=== PATIENT | female | born 1980 | race Caucasian/White ===

== ENCOUNTER 2019-07-09 16:49 | Inpatient (IN) ==
[2019-07-09 17:51] LABS: BASO# 0.01 X1000 (0.0-0.2); BASO% 0.1 % (0.0-0.8); EOS# 0.11 X1000 (0.0-0.7); EOS% 0.7 % (0.0-10.0); HEMATOCRIT 34.3 % (37.0-47.0); HEMOGLOBIN 11.1 g/dL (12.0-16.0); IMM GRAN# 0.04 X1000 (0.0-0.04); IMM GRAN% 0.3 % (0.0-0.5); LYMPH# 0.68 X1000 (1.2-3.4); LYMPH% 4.4 % (20.5-51.1); MCH 28.1 PG (27-31); MCHC 32.4 g/dL (33-37); MCV 86.8 FL (81-99); MONO% 4.5 % (1.7-9.3); MPV 9.9 FL (7.4-10.4); NEUT# 14.01 X1000 (1.4-6.5); PLT 251 X1000 (130-400); RBC 3.95 XMIL (4.2-5.4); WBC 15.55 X1000 (4.8-10.8)
[2019-07-09 18:02] LABS: AGAP 12; ALB/GLOB RATIO 1.3; ALBUMIN 3.4 g/dL (3.5-5.0); ALKALINE PHOSPHATASE 80 U/L (32-104); BUN 8 mg/dL (8-22); CALCIUM 8.6 mg/dL (8.8-10.2); CHLORIDE 97 mmol/L (98-107); COSMO 264; CREATININE 0.6 mg/dL (0.5-0.9); ESTIMATED GFR > 60; GLUCOSE 127 mg/dL (70-104); GOT 141 U/L (10-30); GPT 153 U/L (10-36); POTASSIUM 3.2 mmol/L (3.5-5.1); SODIUM 132 mmol/L (136-145); TCO2 23 mmol/L (25-35); TOTAL BILIRUBIN 0.21 mg/dL (0.20-1.00); TOTAL PROTEIN 6.1 g/dL (6.3-8.3)
[2019-07-09 19:21] LABS: INR 0.97; PROTIME 12.9 Seconds (11.0-16.0)
[2019-07-09 19:22] LABS: PTT 33.5 Seconds (22.3-41.8)
[2019-07-09 19:57] LABS: CK INDEX 0.2 (0.0-2.5); CK-MB 8.15 ng/mL (0.0-5.0)
[2019-07-09] MEDS ORDERED: VANCOMYCIN 1 GM/NS 1 GM/250 ML IVPB IV SCH (21:15)
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
[2019-07-09 22:36] LABS: URINE SOURCE CLEAN CATCH
[2019-07-09 23:04] LABS: BILIRUBIN URINE NEGATIVE (NEGATIVE); BLOOD URINE TRACE (NEGATIVE); COLOR YELLOW; GLUCOSE URINE NEGATIVE (NEGATIVE); KETONE URINE NEGATIVE (NEGATIVE); LEUKOCYTES URINE NEGATIVE (NEGATIVE); NITRITE URINE NEGATIVE (NEGATIVE); PH URINE 6.5; PROTEIN URINE 30 mg/dL (NEGATIVE); SP GRAVITY URINE 1.013; TURBIDITY URINE CLEAR (CLEAR); UROBILINOGEN URINE NORMAL (NORMAL)
[2019-07-09 23:23] LABS: UR EPITHELIAL CELLS <10 /HPF (<10); URINE BACTERIA NEGATIVE /HPF; URINE RBC <10 /HPF (<10); URINE WBC <10 /HPF (<10)
[2019-07-09 23:27] LABS: URINE CASTS NONE SEEN; URINE CRYSTALS NONE SEEN; URINE YEAST NONE SEEN
[2019-07-10 00:11] LABS: UR AMPHETAMINES QUAL PRESUMPTIVE POSITIVE (NONE DETECT); UR BARBITUATES QUAL NONE DETECTED (NONE DETECT); UR BENZODIAZEPIN QUAL NONE DETECTED (NONE DETECT); UR CANNABINOIDS QUAL NONE DETECTED (NONE DETECT); UR COCAINE QUAL NONE DETECTED (NONE DETECT); UR METHADONE QUAL NONE DETECTED (NONE DETECT); UR OPIATES QUAL NONE DETECTED (NONE DETECT); UR OXYCODONE QUAL NONE DETECTED (NONE DETECT); UR PCP QUAL NONE DETECTED (NONE DETECT)
[2019-07-10] MEDS ORDERED: ZOSYN 4.5 GM in NS 100 ML IV SCH (00:30)
[2019-07-10] MEDS ORDERED: VANCOMYCIN IV PER PHARMACY MISC SCH ×2 (00:30→04:08)
[2019-07-10] MEDS ORDERED: KLOR-CON PO ONE ×2 (00:33→02:26)
[2019-07-10] MEDS ORDERED: VANCOMYCIN 800 MG in NS 250 ML IV ONE (02:15)
--- NOTE | 2019-07-10 02:27 | HISTORY AND PHYSICAL ---
PRIMARY CARE PHYSICIAN: None. CHIEF COMPLAINT: Sore on buttocks x2 days. HISTORY OF PRESENTING ILLNESS: A 38-year-old female with a history of fibromyalgia who had presented to emergency department with complaint of sore on her buttocks region for the past 2 days. The patient states that it has been very painful and she was having some intermittent fevers. She was evaluated in the emergency department and it seemed that the region around her buttocks seemed inflamed and indurated. Due to her presenting symptoms, she will require admission for further management. At the time of my examination, she denied any nausea, vomiting, diarrhea, chest pain, hemoptysis or any weight changes, but complained of buttocks pain, fever, and coughing. PAST MEDICAL HISTORY: Includes fibromyalgia. PAST SURGICAL HISTORY: None. ALLERGIES: No known drug allergies. CURRENT MEDICATIONS: None. SOCIAL HISTORY: Fifteen pack year history of smoking. Admits to social alcohol use. Denies any illicit drug use. FAMILY HISTORY: Positive for coronary disease in mother. REVIEW OF SYSTEMS: Fourteen-point review of systems as listed in HPI. Other systems negative. PHYSICAL EXAMINATION: GENERAL: Cooperative, friendly female. She is resting more comfortably now. VITAL SIGNS: Temperature 98.6 degrees, pulse 117, respiration 19, blood pressure 100/63. HEENT: Atraumatic, normocephalic. Extraocular movements intact. PERRLA. NECK: Supple. CHEST: Clear to auscultation. CARDIOVASCULAR: Regular rate and rhythm. ABDOMEN: Soft. Positive bowel sounds. GENITOURINARY: Indurated region in her buttocks. NEUROLOGIC: Nonfocal. SKIN: Warm. LABORATORIES AND STUDIES: WBCs 15.55, hemoglobin 11.1, hematocrit 34.3, platelets 251,000. Sodium 132, potassium 3.2, chloride 97, CO2 is 23, BUN is 8, creatinine 0.6, glucose is 127, creatine kinase is 3453. ASSESSMENT: This is a 38-year-old female with a history of fibromyalgia who presented to emergency department with 2 days history of having a sore in her buttocks region. She was evaluated in the emergency department and it seemed that possibly there was an abscess. Subsequently, she will require admission for further management. 1. Buttocks cellulitis/abscess. 2. Suspected rhabdomyolysis. 3. Acute bronchitis. 4. Ongoing tobacco abuse. PLAN: 1. We will admit patient to medical floor. 2. We will start patient on IV antibiotics and give adequate pain control. 3. Continue with IV fluids and monitor CK levels. 4. Continue with DuoNebs. 5. I counseled patient on smoking cessation. 6. We will put patient on DVT prophylaxis with SCDs. 7. We will continue to follow and reassess, make further recommendation based on patient's clinical course. cc: Agus Hollingsworth MD
[2019-07-10] MEDS ORDERED: ZOSYN ONE (02:35)
[2019-07-10] MEDS ORDERED: ZOFRAN IV PRN (04:08)
[2019-07-10] MEDS ORDERED: TYLENOL PO PRN (04:08)
[2019-07-10 04:53] LABS: CK INDEX 0.3 (0.0-2.5); CK-MB 5.34 ng/mL (0.0-5.0)
[2019-07-10] MEDS: ROCEPHIN 1 GM in NS 50 ML IV SCH (05:07)
[2019-07-10] MEDS: NS 1,000 ML IV SCH ×2 (05:07→16:03)
[2019-07-10 07:34] LABS: BASO# 0.01 X1000 (0.0-0.2); BASO% 0.1 % (0.0-0.8); EOS# 0.19 X1000 (0.0-0.7); EOS% 1.5 % (0.0-10.0); HEMATOCRIT 30.4 % (37.0-47.0); HEMOGLOBIN 9.7 g/dL (12.0-16.0); IMM GRAN# 0.03 X1000 (0.0-0.04); IMM GRAN% 0.2 % (0.0-0.5); LYMPH# 0.78 X1000 (1.2-3.4); LYMPH% 6.1 % (20.5-51.1); MCH 28.4 PG (27-31); MCHC 31.9 g/dL (33-37); MCV 88.9 FL (81-99); MONO# 0.79 X1000 (0.11-0.59); MONO% 6.2 % (1.7-9.3); MPV 10.1 FL (7.4-10.4); NEUT# 11.01 X1000 (1.4-6.5); NEUT% 85.9 % (42.2-75.2); PLT 228 X1000 (130-400); RBC 3.42 XMIL (4.2-5.4); WBC 12.81 X1000 (4.8-10.8)
--- NOTE | 2019-07-10 07:47 | Diag Imaging Result Doc PS360 ---
EXAM: CHEST-1 VIEW HISTORY: sepsis protocol TECHNIQUE: Two views COMPARISON: None. FINDINGS: The patient is rotated to the left. No cardiomegaly. No pulmonary edema. No infiltrates. No pleural effusions identified. IMPRESSION: No pneumonia Electronically signed by Alexander Sofia 07/10/2019 7:45 AM
[2019-07-10 07:55] LABS: AGAP 11; BUN 5 mg/dL (8-22); CALCIUM 8.1 mg/dL (8.8-10.2); CHLORIDE 104 mmol/L (98-107); COSMO 279; CREATININE 0.6 mg/dL (0.5-0.9); ESTIMATED GFR > 60; GLUCOSE 101 mg/dL (70-104); POTASSIUM 3.6 mmol/L (3.5-5.1); SODIUM 141 mmol/L (136-145); TCO2 26 mmol/L (25-35)
[2019-07-10 08:02] LABS: BANDS 4 % (0-1); EOS 2 % (1-10); LYMPHS 2 % (21-51); MONO 6 % (1-9); SEGS 86 % (42-75)
[2019-07-10] MEDS: DUONEB (A & A) INH SCH ×6 (08:47→23:06)
[2019-07-10] MEDS: MUCINEX PO SCH ×2 (09:02→20:22)
--- NOTE | 2019-07-10 14:44 | GENERAL SURGERY CONSULTATION ---
DATE: 07/10/2019 REQUESTING PHYSICIAN: Dr. Vogel. REASON FOR CONSULTATION: Gluteal abscess. HISTORY OF PRESENT ILLNESS: A 38-year-old female with history of fibromyalgia, who presented to the emergency department complaining of soreness to her gluteal region for the past 2 days. She says it has been very painful and has had some intermittent fever. She was evaluated in the emergency department and shown to have an area of induration in her buttocks. She has been admitted. Of note she also tested positive for amphetamines in her urine drug screen. She still has significant tenderness there, and cannot sit there for very long. I was asked to weigh an opinion. At the time of this dictation, a CT scan is pending. PAST MEDICAL HISTORY: Fibromyalgia. PAST SURGICAL HISTORY: None. ALLERGIES: None. CURRENT MEDICATIONS: MAR reviewed. Of note, she is on vancomycin and Rocephin. FAMILY HISTORY: Reviewed. Positive for coronary artery disease. SOCIAL HISTORY: Current smoker. Reports social alcohol intake. Did have a positive urinary drug screen for amphetamines. REVIEW OF SYSTEMS: A full 14 systems reviewed, negative except as otherwise specified in HPI. PHYSICAL EXAMINATION: Vital Signs: Patient is currently with temperature 99.3 degrees, pulse 67, blood pressure 110/56. General exam: Resting female looks stated age. HEENT: Normocephalic. Some wounds noted to her face. Mucous membranes moist. Oropharynx benign. Neck: Supple. Trachea midline. Cardiovascular: Regular rate and rhythm. Lungs: Grossly clear. Abdomen: Soft, nontender. Gluteal region: There are areas of induration on both gluteal folds and at the gluteal cleft. There is an area of some fibrinous exudate and maybe some purulence noted. It is very exquisitely tender to palpation. It is warm to the touch, but there is no streaking erythema noted. No fluctuance noted at this time. I did get a culture from the area. Vascular: All extremities perfused. Neurologic: Grossly intact. Skin: Multiple wounds on her hand and face, and the gluteal wound as noted above. Neurologic: Grossly intact. LABORATORY: White blood cell count is 12 which is down from admission. There is a left shift. Remainder of labs reviewed. Of note, her creatine kinase is elevated, but trending down. IMAGING: Currently pending. ASSESSMENT/PLAN: A 38-year-old female with gluteal cellulitis versus abscess. 1. Gluteal abscess versus cellulitis. At this time, we will follow up with a CT scan. She is on appropriate antibiotics. Exam is very difficult at this time. It may represent something like a pilonidal cyst, but I did not see any obvious fluctuance, but there may be an abscess deeper down, and given the limitations of the exam could not feel. So, we will follow up with the CT scan. Recommend continue antibiotics and we will continue to monitor. If there is a discrete abscess, may consider taking her to the operating room tomorrow. cc: Nicolas Diana MD
[2019-07-10] MEDS: VANCOMYCIN 1,350 MG in NS 250 ML IV SCH (16:03)
--- NOTE | 2019-07-10 17:45 | PROGRESS NOTE ---
DATE: 07/10/2019 SUBJECTIVE: Patient has no major complaints, except back pain and kind of generalized pain. OBJECTIVE: BP 102/74, heart rate 98, respiratory 19, temperature 98.9 degrees.Cardiovascular: Regular rate and rhythm. Pulmonary: Bilateral breath sounds. Clear to auscultation. Gastrointestinal: Soft, nontender, nondistended. Bowel sounds are positive. LABORATORY DATA: White count is 12, hemoglobin and hematocrit 9 and 30, platelets 228,000. Basic was normal. CPK down to 1829. PROBLEM LIST: 1. Gluteal cellulitis, possible abscess. We will continue empiric antibiotics and follow. 2. Rhabdomyolysis, which I think is probably related to her methamphetamine use. It is improved. We will continue fluids and follow. 3. Polysubstance abuse including methamphetamines and tobacco. We have counseled on cessation. Continue to monitor. cc: Rambo Vogel MD
--- NOTE | 2019-07-10 19:59 | Diag Imaging Result Doc PS360 ---
EXAM: CT PELVIS W/CONTRAST HISTORY: r/o abscess TECHNIQUE: CT pelvis with intravenous contrast, but without oral contrast. COMPARISON: None. FINDINGS: There is a large amount of stool within the rectum and colon. The urinary bladder is minimally distended. Normal uterus. Small right ovarian cyst. Normal left ovary. Subcutaneous edema posterior to the sacrum and coccyx. Small amount of fluid adjacent to the distal coccyx, but no well-defined abscess. IMPRESSION: Fecal impaction This exam was performed using automated exposure control, adjustment of mA or kV according to patient size, and/or use of iterative reconstruction technique. Electronically signed by Alexander Sofia 07/10/2019 7:57 PM
[2019-07-11] MEDS: NS 1,000 ML IV SCH ×2 (01:13→17:48)
[2019-07-11] MEDS: VANCOMYCIN 1,350 MG in NS 250 ML IV SCH (01:16)
[2019-07-11] MEDS: ROCEPHIN 1 GM in NS 50 ML IV SCH (03:11)
[2019-07-11] MEDS: DUONEB (A & A) INH SCH ×6 (03:20→22:58)
--- NOTE | 2019-07-11 07:05 | GENERAL SURGERY PROGRESS NOTE ---
DATE: 07/11/2019 SUBJECTIVE: The patient is still hurting. She did have a CT scan done yesterday. It did not show a discrete abscess in her gluteal cleft. OBJECTIVE: Vital Signs: The patient is currently afebrile. Her vital signs are stable. General Examination: No acute distress. Resting on a warm compress. HEENT: Normocephalic, atraumatic. Pupils equal, round, reactive to light. Mucous membranes moist. Oropharynx benign. Neck: Supple. Trachea midline. Cardiovascular: Regular rate and rhythm. Lungs: Grossly clear. Abdomen: Soft, nontender. Gluteal region looks improved. Overall, there is still some induration but no erythema. The wound itself has been cleaned up with some of the slough and has at least a healthy granulated base. It is steak tenderizer machine to palpation. Extremities: Moves all extremities. Neurologic: Grossly intact. Skin: Wounds as noted above and on her hand and on her face, which appear stable. Laboratory: Reviewed from yesterday. White blood cell count is trending down. CT scan as noted above. ASSESSMENT AND PLAN: A 38-year-old female with a gluteal wound. Gluteal wound. At this time, no discrete abscess noted. We will keep the warm compresses and Vashe wet-to-dry. She may develop an abscess because she does have some stranding in the area on the CT scan but at this time, nothing to drain so we will continue local wound care. cc: Nicolas Diana MD
[2019-07-11] MEDS: MUCINEX PO SCH ×2 (08:51→20:07)
[2019-07-11] MEDS: MIRALAX PO SCH (16:17)
[2019-07-11] MEDS: LACTULOSE PO SCH ×2 (16:18→20:01)
[2019-07-11] MEDS: VANCOMYCIN 1,600 MG in NS 250 ML IV SCH (16:23)
--- NOTE | 2019-07-11 18:02 | PROGRESS NOTE ---
DATE: 07/11/2019 SUBJECTIVE: The patient now complaining of diffuse kind of vesicular possible pustules, some are erupted on her face, on her lower chin, 1 is over her finger on her right hand, right thumb. She had 1 that is unroofed on her foot I believe her left foot. OBJECTIVE: Vital Signs: Blood pressure 111/57, heart rate 103, respiratory 16, temperature 97.5 degrees, afebrile. Cardiovascular: Regular rate and rhythm. Pulmonary: Bilateral breath sounds clear to auscultation. GI: Soft, nontender, nondistended. Bowel sounds are positive. Extremities: No clubbing or cyanosis. Lymphatic: No peripheral edema. Neurological: Nonfocal. LABORATORY DATA: White count is 12. We then have any data today. CPK is elevated too . 1. Gluteal cellulitis, maybe pilonodal cyst we will continue antibiotics, she is currently on Rocephin which is day 1 and vanc which is day 1. Her cultures are growing out gram-positive cocci from her buttock culture it says rectum so I am suspicious that this is well it is possible it is staph but could be strep, could be Enterococcus. We will continue antibiotics and follow. 2. Vesicular rash - I did a bedside lancing with a small needle after cleaning the area with chlorhexidine, made a small incision and collected what appeared to be whitish opaque purulent material. I am not sure if this is septic embolic lesions or if this is a separate issue but any case, we will continue empiric antibiotics and follow. 3. Rhabdomyolysis- . We will continue IV fluids and repeat her CPK. I think that is probably related to her methamphetamine use but we will continue to monitor. 4. Polysubstance abuse. Will continue smoking cessation, advising on drug use. 5. Fecal impaction. We will initiate a bowel regimen. She reports a large bowel movement this morning on her own without other treatment. cc: Rambo Vogel MD [facility] CENTERJeremias
[2019-07-12] MEDS: DUONEB (A & A) INH SCH ×6 (03:34→23:07)
[2019-07-12] MEDS: VANCOMYCIN 1,600 MG in NS 250 ML IV SCH (04:23)
--- NOTE | 2019-07-12 07:03 | GENERAL SURGERY PROGRESS NOTE ---
DATE: 07/12/2019 SUBJECTIVE: Patient seems to be doing well. Area seems to be improving. OBJECTIVE: Vital signs: Patient is currently afebrile. Her vital signs are stable. General exam: No acute distress HEENT: Normocephalic, atraumatic. Pupils equal, round, reactive to light. Mucous membranes moist. Oropharynx benign. Neck: Neck is supple. Trachea midline Cardiovascular: Regular rate and rhythm. Lungs: Grossly clear Abdomen: Soft, nontender, nondistended. Rectal: Area reviewed with defensive fire control systems operator; the area seems to be improving. Induration appears to be overall less Extremities: Moves all extremities. Neurologic: Grossly intact. Skin: Wounds as previously noted. Vascular: All extremities perfused. LABORATORY: None this morning as of yet; none from yesterday. Microbiology: Shows gram-positive cocci. ASSESSMENT AND PLAN: A 38-year-old female with gluteal abscess. 1. Gluteal abscess. At this time it might be more of a pilonidal cyst, but at this time seems to be improving with warm compresses, abscess and Vashe wet-to-dry. There does not seem to be discrete abscess on CT scan, so we will just continue local wound care. cc: Nicolas Diana MD
[2019-07-12 08:58] LABS: BASO# 0.01 X1000 (0.0-0.2); BASO% 0.2 % (0.0-0.8); EOS# 0.15 X1000 (0.0-0.7); EOS% 2.5 % (0.0-10.0); HEMATOCRIT 28.2 % (37.0-47.0); HEMOGLOBIN 8.7 g/dL (12.0-16.0); IMM GRAN# 0.02 X1000 (0.0-0.04); IMM GRAN% 0.3 % (0.0-0.5); LYMPH% 20.3 % (20.5-51.1); MCH 27.9 PG (27-31); MCHC 30.9 g/dL (33-37); MCV 90.4 FL (81-99); MONO# 0.44 X1000 (0.11-0.59); MONO% 7.4 % (1.7-9.3); MPV 10.1 FL (7.4-10.4); NEUT# 4.09 X1000 (1.4-6.5); NEUT% 69.3 % (42.2-75.2); PLT 237 X1000 (130-400); RBC 3.12 XMIL (4.2-5.4); WBC 5.91 X1000 (4.8-10.8)
[2019-07-12] MEDS ORDERED: BLISTEX MEDICATED BERRY LIP BALM TOP PRN (08:59)
[2019-07-12] MEDS: MUCINEX PO SCH ×2 (09:01→21:25)
[2019-07-12] MEDS: ROCEPHIN 1 GM in NS 50 ML IV SCH (09:01)
[2019-07-12] MEDS: MIRALAX PO SCH (09:02)
[2019-07-12] MEDS: LACTULOSE PO SCH ×2 (09:02→21:26)
[2019-07-12 09:28] LABS: AGAP 12; BUN 4 mg/dL (8-22); CALCIUM 8.1 mg/dL (8.8-10.2); CHLORIDE 105 mmol/L (98-107); COSMO 282; CREATININE 0.5 mg/dL (0.5-0.9); ESTIMATED GFR > 60; GLUCOSE 96 mg/dL (70-104); POTASSIUM 3.6 mmol/L (3.5-5.1); SODIUM 143 mmol/L (136-145); TCO2 26 mmol/L (25-35)
[2019-07-12] MEDS: KEFZOL 2 GM/D5W 2 GM/50 ML IVPB IV SCH ×2 (11:59→18:28)
[2019-07-12] MEDS: NS 1,000 ML IV SCH (14:04)
--- NOTE | 2019-07-12 17:12 | PROGRESS NOTE ---
DATE: 07/12/2019 SUBJECTIVE: Patient has no major complaints. OBJECTIVE: Vital Signs: Blood pressure is 121/59, heart rate of 84, respiratory rate 18, temperature 98.4 degrees. Cardiovascular: Regular rate and rhythm. Pulmonary: Bilateral breath sounds clear to auscultation. Gastrointestinal: Abdomen soft, nontender, nondistended. Bowel sounds are positive. LABORATORY DATA: White count of 5, hemoglobin and hematocrit 8 and 28, platelets of 237,000. Basic was normal. CPK is down to 264, vast improvement. PROBLEM LIST: Intergluteal cellulitis. Really, it could be a pilonidal cyst based on where it has been, but it is an open lesion with surrounding erythema, although the cellulitis is minimal and epidermal layer kind of exposed, although it is not actively draining. Looks a lot better than it did yesterday. She is on Rocephin and vancomycin. There is a rectal culture. I am not sure what that is because there is a rectal and buttock culture from 2 different times. Hopefully it is not is on rectal culture. I do not think this is probably very high yield but the rectal culture is growing out Methicillin-sensitive Staphylococcal aureus, so she is currently on cefazolin for that. We may need to continue vancomycin, but the cultures are kind of polymicrobial. She is growing out 2 different gram-positive cocci and then 1 gram-positive cocci from a different wound culture. The wound culture I cultured from her finger yesterday has disappeared. It is not in the available, I wonder what happened to it. We will continue cefazolin for the time being. We may have to reinstitute vancomycin. We will see how she does. She is asking to stop her IV fluids. She wants a NicoDerm patch and she wants something for her lips but these may be just cold sores. We will see how things go. cc: Rambo Vogel MD
[2019-07-12] MEDS: NICODERM PATCH TD PRN (17:43)
[2019-07-13] MEDS: KEFZOL 2 GM/D5W 2 GM/50 ML IVPB IV SCH ×2 (03:42→12:53)
[2019-07-13] MEDS: DUONEB (A & A) INH SCH ×4 (05:31→15:20)
--- NOTE | 2019-07-13 08:49 | GENERAL SURGERY PROGRESS NOTE ---
DATE: 07/13/2019 SUBJECTIVE: Patient seems to be doing about the same. Nursing staff does report she has been picking at her pilonidal. OBJECTIVE: Vital Signs: Patient is currently afebrile, her vital signs are stable. General: No acute distress. HEENT: Normocephalic, atraumatic. Pupils equal, round, reactive to light. Mucous membranes moist. Oropharynx benign. Neck: Supple. Trachea midline. Cardiovascular: Regular rate and rhythm. Lungs: Grossly clear. Abdomen: Soft, nontender, nondistended. Rectal: Perineal area reviewed with medical record technician area seems to be improving. There might be a little sinus tract consistent with a pilonidal cyst in the area but no active purulence. There is some fibrinous exudate in the area. Extremities: Moves all extremities. Neurologic: Grossly intact. Skin: As noted above and previous wounds noted to her skin. Vascular: All extremities perfused. LABORATORY DATA: None this morning as of yet. Culture data shows gram-positive cocci. ASSESSMENT AND PLAN: A 38-year-old with likely infected pilonidal cyst. Pilonidal cyst. At this time, I recommend continuing with local wound care. She is on antibiotics. I think from a surgical point of view, she can probably be transitioned to p.o. antibiotics and discharged here in the near future, but we will defer to the Hospitalist. cc: Nicolas Diana MD
[2019-07-13 08:50] LABS: BASO# 0.01 X1000 (0.0-0.2); BASO% 0.2 % (0.0-0.8); EOS# 0.19 X1000 (0.0-0.7); EOS% 3.6 % (0.0-10.0); HEMATOCRIT 28.5 % (37.0-47.0); HEMOGLOBIN 8.8 g/dL (12.0-16.0); IMM GRAN# 0.02 X1000 (0.0-0.04); IMM GRAN% 0.4 % (0.0-0.5); LYMPH# 1.53 X1000 (1.2-3.4); LYMPH% 28.8 % (20.5-51.1); MCH 27.8 PG (27-31); MCHC 30.9 g/dL (33-37); MCV 90.2 FL (81-99); MONO# 0.45 X1000 (0.11-0.59); MONO% 8.5 % (1.7-9.3); MPV 9.9 FL (7.4-10.4); NEUT# 3.11 X1000 (1.4-6.5); NEUT% 58.5 % (42.2-75.2); PLT 276 X1000 (130-400); RBC 3.16 XMIL (4.2-5.4); RDW 14.6 % (11.5-14.5); WBC 5.31 X1000 (4.8-10.8)
[2019-07-13 09:17] LABS: AGAP 10; BUN 4 mg/dL (8-22); CALCIUM 8.6 mg/dL (8.8-10.2); CHLORIDE 103 mmol/L (98-107); COSMO 274; CREATININE 0.5 mg/dL (0.5-0.9); ESTIMATED GFR > 60; GLUCOSE 90 mg/dL (70-104); POTASSIUM 3.8 mmol/L (3.5-5.1); SODIUM 139 mmol/L (136-145); TCO2 26 mmol/L (25-35)
[2019-07-13] MEDS: MUCINEX PO SCH (09:47)
[2019-07-13] MEDS: LACTULOSE PO SCH (12:52)
[2019-07-13] MEDS: MIRALAX PO SCH (12:52)
[2019-07-13] MEDS: NICODERM PATCH TD PRN (12:56)
[2019-07-13 19:22] VITALS: BP 136/97
--- NOTE | 2019-07-14 06:37 | DISCHARGE SUMMARY ---
ADMISSION DATE: 07/10/2019 DISCHARGE DATE: 07/13/2019 DISCHARGE DIAGNOSIS: Intragluteal abscess possibly ruptured pilonidal cyst infection with MSSA and strep pyogenes. HISTORY: Briefly, this is a 38-year-old female. She has had Staph infections before fibromyalgia. She complained of soreness in her buttock area, and she was admitted for treatment. She underwent I believe a local I D in the ER. She was placed on antibiotics. There was question of rhabdo, but CT did not confirm abscess although she had bowel constipation. Surgery also felt that this could be managed medically, and we continued antibiotics which I believe was a combination of vancomycin and Rocephin. Cultures, however, showed buttock cultures. There were 2 different cultures. They were there both from a similar area. They were both obtained about 12 hours apart, one grew out MSSA and strep pyogenes, and the other 1 grew out Staph epi. They were all sensitive to doxycycline or tetracyclines, but I prefer to add Keflex for the strep A because of the Staph and Strep. She clinically improved. She did develop a couple of lesions that may have been metastatic. I think she also possibly auto inoculated herself, but she was stable and felt stable for discharge. She was advised to stop smoking. She is also advised to stop amphetamine use because that was positive on admission. She will be discharged on doxycycline 100 p.o. b.i.d. for 7 days and Keflex 500 q.12h for another 7 days. Follow up with Dr. Diana. This is a service admission. cc: Rambo Vogel MD
== END 2019-07-13 20:19 | disposition home or self-care (01) | DRG 603 ==
LOC: ED 16:49 → SUATTDRO 07-10 00:39 → 3N 07-10 00:39
PROVIDERS: ATTEND Internal Medicine